=== PATIENT | female | born 1985 | race American Indian/Alaskan Native ===

== ENCOUNTER 2018-08-16 14:38 | Emergency (ER) | payer MEDICAID, OTHER ==
[2018-08-16 15:40] VITALS: BP 120/71
--- NOTE | 2018-08-16 15:40 | Emergency Department Report ---
Chief Complaint: Nausea/Vomiting/Diarrhea Stated Complaint: BODY ACHE/N/V/VOMITING Time Seen by Provider: 08/16/18 15:37 - HPI History of Present Illness: ATE OUT YESTERDAY LMP 2-26 RX NONE PMH ASTHMA PSH CSEC [id number] CO LLQ, NAUSEA AND VOMITING AMBULATORY NAD MSE COMPLETED MSE screening note: Focused history and physical exam performed. Due to findings the following was ordered: ED Disposition for MSE Condition: Stable
[2018-08-16 16:36] LABS: Basophils # (Auto) 0.1 K/mm3 (0.0-0.1); Basophils % (Auto) 0.9 % (0.0-1.8); Eosinophils # (Auto) 0.3 K/mm3 (0.0-0.4); Eosinophils % (Auto) 3.1 % (0.0-4.3); Hematocrit 37.1 % (30.3-42.9); Hemoglobin 12.1 gm/dl (10.1-14.3); Lymphocytes # (Auto) 3.1 K/mm3 (1.2-5.4); Lymphocytes % (Auto) 31.4 % (13.4-35.0); Mean Corpuscular HGB Conc 33 % (30-34); Mean Corpuscular Volume 81 fl (79-97); Monocytes # (Auto) 0.9 K/mm3 (0.0-0.8); Monocytes % (Auto) 8.9 % (0.0-7.3); Platelet Count 433 K/mm3 (140-440); Red Blood Count 4.59 M/mm3 (3.65-5.03); Red Cell Distribution Width 16.6 % (13.2-15.2)
[2018-08-16 16:50] LABS: Alanine Aminotransferase 6 units/L (7-56); Albumin 4.2 g/dL (3.9-5); BUN/Creatinine Ratio 30; Blood Urea Nitrogen 15 mg/dL (7-17); Calcium 9.1 mg/dL (8.4-10.2); Hemolysis Index 48
[2018-08-16 17:22] LABS: Bilirubin,Urine NEG (Negative); Blood,Urine NEG (Negative); Color,Urine Yellow (Yellow); Mucus,Urine FEW /HPF; Protein,Urine <15 mg/dL mg/dL (Negative); WBC,Urine < 1.0 /HPF (0.0-6.0)
[2018-08-16 17:34] LABS: HCG Qualitative,Urine Negative (Negative)
--- NOTE | 2018-08-16 17:35 | Emergency Department Report ---
HPI - General Chief Complaint: Nausea/Vomiting/Diarrhea Time Seen by Provider: 08/16/18 15:37 - HPI HPI: 32-year-old -[place] male presents to ED with abdominal discomfort, cramping, nausea, vomiting, diarrhea, since yesterday. Symptoms started after patient ate out. Symptoms have been improving, LMP about 6 weeks ago, wondering about a test. Fever, chills or night sweats. No bloody diarrhea, hematochezia, or melena. No hematemesis. Has not taking any medications for symptoms. ED Past Medical Hx - Past Medical History Hx Asthma: Yes Additional medical history: anxiety - Surgical History Past Surgical History?: Yes Additional Surgical History: C section - Social History Smoking Status: Never Smoker Substance Use Type: None - Medications Home Medications: Home Medications Medication Instructions Recorded Confirmed Last Taken Type Amoxicillin/Potassium Clav 1 each PO BID #20 tablet 05/22/18 Unknown Rx [Augmentin 875-125 Tablet] Ondansetron [Zofran Odt] 4 mg PO Q8HR #7 tab.rapdis 08/16/18 Unknown Rx ED Review of Systems ROS: Stated complaint: BODY ACHE/N/V/VOMITING Other details as noted in HPI Constitutional: denies: chills, fever Eyes: denies: eye pain, eye discharge, vision change ENT: denies: ear pain, throat pain Respiratory: denies: cough, shortness of breath, wheezing Cardiovascular: denies: chest pain, palpitations Endocrine: no symptoms reported Gastrointestinal: abdominal pain, nausea, vomiting, diarrhea Genitourinary: denies: urgency, dysuria, discharge Musculoskeletal: denies: back pain, joint swelling, arthralgia Skin: denies: rash, lesions Neurological: denies: headache, weakness, paresthesias Psychiatric: denies: anxiety, depression Hematological/Lymphatic: denies: easy bleeding, easy bruising Physical Exam - Physical Exam Vital Signs: Vital Signs 08/16/18 15:37 Temperature 98.6 F Pulse Rate 78 Respiratory 16 Rate Blood Pressure 120/71 O2 Sat by Pulse 100 Oximetry Physical Exam: - General Limitations: No Limitations General appearance: alert, in no apparent distress - Head Head exam: Present: atraumatic, normocephalic - Eye Eye exam: Present: normal appearance - ENT ENT exam: Present: mucous membranes moist - Neck Neck exam: Present: normal inspection - Respiratory Respiratory exam: Present: normal lung sounds bilaterally. Absent: respiratory distress - Cardiovascular Cardiovascular Exam: Present: regular rate, normal rhythm. Absent: systolic murmur, diastolic murmur, rubs, gallop - GI/Abdominal GI/Abdominal exam: Present: soft, normal bowel sounds - Extremities Exam Extremities exam: Present: normal inspection - Back Exam Back exam: Present: normal inspection - Neurological Exam Neurological exam: Present: alert, oriented X3 - Psychiatric Psychiatric exam: Present: normal affect, normal mood - Skin Skin exam: Present: warm, dry, intact, normal color. Absent: rash ED Course Vital Signs 08/16/18 15:37 Temperature 98.6 F Pulse Rate 78 Respiratory 16 Rate Blood Pressure 120/71 O2 Sat by Pulse 100 Oximetry - Reevaluation(s) Reevaluation #1: 08/16/18 17:52 Much improved and wants to go home ED Medical Decision Making - Lab Data Result diagrams: 08/16/18 16:17 08/16/18 16:17 - Medical Decision Making 38-year-old with abdominal pain, nausea, diarrhea after eating out Labs and urine were within normal limits in the ED, feeling much better and will be discharged return to ED if symptoms return or worsen. - Differential Diagnosis gastroenteritis, food poisoning, colitis, Critical care attestation.: If time is entered above; I have spent that time in minutes in the direct care of this critically ill patient, excluding procedure time. ED Disposition Clinical Impression: Gastroenteritis Food poisoning Qualifiers: Encounter type: initial encounter Injury intent: undetermined intent Qualified Code(s): T62.94XA - Toxic effect of unspecified noxious substance eaten as food, undetermined, initial encounter Disposition: DC-01 TO HOME OR SELFCARE Is pt being admited?: No Does the pt Need Aspirin: No Condition: Stable Instructions: Food Poisoning (ED), Gastroenteritis (ED) Prescriptions: Ondansetron [Zofran Odt] 4 mg PO Q8HR #7 tab.rapdis Referrals: ROSEMARIE HAWKINS MD [Primary Care Provider] - 3-5 Days
== END 2018-08-16 18:07 | disposition home or self-care (01) ==
LOC: ED 14:38
DX: T62.94XA Toxic effect of unspecified noxious substance eaten as food, undetermined, initial encounter (principal); K52.9 Noninfective gastroenteritis and colitis, unspecified; J45.909 Unspecified asthma, uncomplicated; X58.XXXA Exposure to other specified factors, initial encounter
CPT/HCPCS: 36415; 80053; 81001; 81025; 83690; 85025; 99283

== ENCOUNTER 2018-08-27 15:43 | Emergency (ER) | payer MEDICAID, OTHER ==
[2018-08-27 15:52] VITALS: BP 114/77
--- NOTE | 2018-08-27 15:52 | Emergency Department Report ---
Blank Doc - Documentation Documentation: This is a 32-year-old female that presents with acute on chronic intermittent headaches and diarrhea. Denies any abdominal pain. Denies any n/v. This initial assessment/diagnostic orders/clinical plan/treatment(s) is/are subject to change based on patient's health status, clinical progression and re- assessment by fellow clinical providers in the ED. Further treatment and workup at subsequent clinical providers discretion. Patient/guardians urged not to elope from the ED as their condition may be serious if not clinically assessed and managed. Initial orders include: 1- Patient sent to [facility] for further evaluation and treatment 2- labs
[2018-08-27 16:30] LABS: Basophils # (Auto) 0.2 K/mm3 (0.0-0.1); Basophils % (Auto) 1.5 % (0.0-1.8); Eosinophils # (Auto) 0.4 K/mm3 (0.0-0.4); Eosinophils % (Auto) 3.6 % (0.0-4.3); Hematocrit 35.1 % (30.3-42.9); Hemoglobin 11.4 gm/dl (10.1-14.3); Lymphocytes # (Auto) 2.9 K/mm3 (1.2-5.4); Lymphocytes % (Auto) 28.2 % (13.4-35.0); Mean Corpuscular HGB Conc 32 % (30-34); Mean Corpuscular Volume 81 fl (79-97); Monocytes # (Auto) 1.1 K/mm3 (0.0-0.8); Monocytes % (Auto) 10.1 % (0.0-7.3); Platelet Count 387 K/mm3 (140-440); Red Blood Count 4.35 M/mm3 (3.65-5.03); Red Cell Distribution Width 15.9 % (13.2-15.2)
[2018-08-27] MEDS ORDERED: TYLENOL PO ONE (16:35)
[2018-08-27 16:43] LABS: BUN/Creatinine Ratio 36; Blood Urea Nitrogen 18 mg/dL (7-17); Calcium 8.8 mg/dL (8.4-10.2); Hemolysis Index 30
[2018-08-27] MEDS ORDERED: DELTASONE PO ONE (17:15)
--- NOTE | 2018-08-27 17:19 | Emergency Department Report ---
Minor Respiratory - HPI Chief Complaint: Headache Stated Complaint: MIGRAINE/DIARRHEA Time Seen by Provider: 08/27/18 15:51 Duration: 3 Days Pain Location: Other Minor Respiratory: Yes Able to Tolerate Fluids, No Rhinorrhea, No Sore Throat, No Ear Pain, No Cough, No Sick Contacts, No Hemoptysis, No Chest Pain, No Shortness of Breath, No Fever Other History: Patient is a pleasant 32-year-old that comes in today with a headache. She also has sinus tenderness and postnasal drip. She has some family members that have had recent diarrhea but she also thinks that her p ostnasal drip could be causing her stools to be loose. Past medical history anxiety. Past surgical history none. Home medications none ED Review of Systems ROS: Stated complaint: MIGRAINE/DIARRHEA Other details as noted in HPI Comment: All other systems reviewed and negative Eyes: denies: as per HPI, eye pain ENT: denies: ear pain Respiratory: denies: orthopnea Cardiovascular: denies: palpitations Endocrine: denies: excessive sweating Gastrointestinal: as per HPI, diarrhea. denies: nausea Genitourinary: denies: urgency Musculoskeletal: denies: back pain Skin: denies: lesions Neurological: as per HPI, headache Psychiatric: denies: anxiety Hematological/Lymphatic: denies: easy bleeding ED Past Medical Hx - Past Medical History Previous Medical History?: Yes Hx Asthma: Yes Additional medical history: anxiety - Surgical History Past Surgical History?: Yes Additional Surgical History: C section - Family History Family history: no significant - Social History Smoking Status: Never Smoker Substance Use Type: Marijuana - Medications Home Medications: Home Medications Medication Instructions Recorded Confirmed Last Taken Type Cetirizine HCl [ZyrTEC] 10 mg PO DAILY #30 capsule 08/27/18 Unknown Rx Fluticasone [Flonase] 1 spray NS QDAY #1 bottle 08/27/18 Unknown Rx predniSONE [Deltasone] 20 mg PO DAILY #5 tablet 08/27/18 Unknown Rx Minor Respiratory Exam - Exam General: Vital signs noted. No distress. Alert and acting appropriately. HEENT: Yes Pharyngeal Erythema, Yes Moist Mucous Membranes, Yes Frontal Tenderness, Yes Maxillary Tenderness, No Pharyngeal Exudates, No Rhinorrhea, No Conjuctival Injection Ear: Neither TM Bulge, Neither TM Erythema, Neither EAC Pain, Neither EAC Discharge Neck: Yes Supple, No Adenopathy Lungs: Yes Good Air Exchange, No Wheezes, No Ronchi, No Stridor, No Cough, No Labored Respirations, No Retractions, No Use of Accessory Muscles, No Other Abnormal Lung Sounds Heart: Yes Regular, No Murmur Abdomen: Yes Normal Bowel Sounds, No Tenderness, No Peritoneal Signs Skin: No Rash, No Edema Neurologic: Alert and oriented, no deficits. Musculoskeletal: Unremarkable. ED Course Vital Signs 08/27/18 15:51 Temperature 98.8 F Pulse Rate 74 Respiratory 18 Rate Blood Pressure 114/77 O2 Sat by Pulse 100 Oximetry ED Medical Decision Making - Lab Data Result diagrams: 08/27/18 16:08 08/27/18 16:08 - Medical Decision Making SIMPLE URTI SINUS PAIN AND TENDERNESS DIARRHEA VSS NONTOXIC TAKING PO AMBULATORY Labs 08/27/18 08/27/18 08/27/18 16:08 16:08 16:08 WBC 10.4 RBC 4.35 Hgb 11.4 Hct 35.1 MCV 81 MCH 26 L MCHC 32 RDW 15.9 H Plt Count 387 Lymph % (Auto) 28.2 Catron % (Auto) 10.1 H Eos % (Auto) 3.6 Baso % (Auto) 1.5 Lymph # 2.9 Catron # 1.1 H Eos # 0.4 Baso # 0.2 H Seg Neutrophils % 56.6 Seg Neutrophils # 5.9 Sodium 137 Potassium 4.1 Chloride 105.1 Carbon Dioxide 22 Anion Gap 14 BUN 18 H Creatinine 0.5 L Estimated GFR > 60 BUN/Creatinine Ratio 36 Glucose 87 Calcium 8.8 HCG, Qual Negative Vital Signs 08/27/18 15:51 Temperature 98.8 F Pulse Rate 74 Respiratory 18 Rate Blood Pressure 114/77 O2 Sat by Pulse 100 Oximetry Critical care attestation.: If time is entered above; I have spent that time in minutes in the direct care of this critically ill patient, excluding procedure time. ED Disposition Clinical Impression: Gastroenteritis, Sinusitis, History of asthma Disposition: DC-01 TO HOME OR SELFCARE Is pt being admited?: No Does the pt Need Aspirin: No Condition: Stable Instructions: Sinusitis (ED), Acute Diarrhea (ED) Additional Instructions: motrin or tylenol for fever med as ordered today HYDRATE WELL WITH WATER DIET BLAND AND THEN TOLERATED FOLLOW UP PCP IF PERSISTS REFERRAL BELOW Prescriptions: predniSONE [Deltasone] 20 mg PO DAILY #5 tablet Fluticasone [Flonase] 1 spray NS QDAY #1 bottle Cetirizine HCl [ZyrTEC] 10 mg PO DAILY #30 capsule Referrals: FÁTIMA SORENSON MD [Primary Care Provider] - 3-5 Days Forms: Work/School Release Form(ED) Time of Disposition: 17:15
== END 2018-08-27 17:33 | disposition home or self-care (01) ==
LOC: ED 15:43
DX: J32.9 Chronic sinusitis, unspecified (principal); K52.9 Noninfective gastroenteritis and colitis, unspecified; J45.909 Unspecified asthma, uncomplicated; F12.10 Cannabis abuse, uncomplicated; F41.9 Anxiety disorder, unspecified
CPT/HCPCS: 36415; 80048; 84703; 85025; 99283; J7512

== ENCOUNTER 2021-09-19 16:59 | Emergency (ER) | payer SELFPAY ==
[2021-09-19] MEDS ORDERED: ONDANSETRON 4 MG ODT TAB PO ONE (18:05)
[2021-09-19 20:44] LABS: Alanine Aminotransferase 17 units/L (7-56); Albumin 4.3 g/dL (3.9-5); Blood Urea Nitrogen 11 mg/dL (7-17); Calcium 8.7 mg/dL (8.4-10.2); Hemolysis Index 3
[2021-09-19 20:48] LABS: BUN/Creatinine Ratio 16
[2021-09-19 21:05] LABS: Bilirubin,Urine NEG (Negative); Blood,Urine LG (Negative); Color,Urine Red (Yellow); Mucus,Urine 3+ /HPF; Urobilinogen,Urine < 2.0 mg/dL (<2.0)
[2021-09-19 21:06] LABS: HCG Qualitative,Urine Negative (Negative); RBC,Urine > 182.0 /HPF (0.0-6.0)
--- NOTE | 2021-09-19 21:25 | Emergency Department Report ---
ED N/V/D HPI - General Chief complaint: Abdominal Pain Stated complaint: NO APPETITE Time Seen by Provider: 09/19/21 17:48 Source: patient Mode of arrival: Ambulatory Limitations: No Limitations - History of Present Illness Initial comments: 36-year-old black female with a past medical history of asthma presents to the emergency department for evaluation of 2-day history of nausea vomiting and decreased appetite. She denies abdominal pain, fever, cough, congestion, dysuria, and vaginal discharge. She states that she just feels bad overall. She denies any sick contacts. MD complaint: nausea, vomiting -: Gradual, days(s) (2.) Associated Abdominal Pain: No Pain Scale: 0 Associated Symptoms: nausea/vomiting. denies: myalgias, chest pain, cough, diaphoresis, fever/chills, headaches, loss of appetite, malaise, rash, dysuria, shortness of breath, syncope, weakness - Related Data Previous Rx's Medication Instructions Recorded Last Taken Type Cetirizine HCl [ZyrTEC] 10 mg PO DAILY #30 capsule 08/27/18 Unknown Rx Fluticasone [Flonase] 1 spray NS QDAY #1 bottle 08/27/18 Unknown Rx predniSONE [Deltasone] 20 mg PO DAILY #5 tablet 08/27/18 Unknown Rx Ondansetron [Zofran Odt] 4 mg PO Q8HR PRN #12 tab.rapdis 09/19/21 Unknown Rx cephALEXin [Keflex] 500 mg PO Q12HR #14 cap 09/19/21 Unknown Rx Allergies Allergy/AdvReac Type Severity Reaction Status Date / Time albuterol Allergy Hives Verified 09/19/21 17:10 ED Review of Systems ROS: Stated complaint: NO APPETITE Other details as noted in HPI Comment: All other systems reviewed and negative Constitutional: denies: chills, fever Respiratory: denies: cough, shortness of breath Cardiovascular: denies: chest pain, palpitations Gastrointestinal: nausea, vomiting. denies: abdominal pain, diarrhea, hematemesis, melena, hematochezia Genitourinary: denies: urgency, dysuria, frequency, hematuria, discharge, abnormal menses Musculoskeletal: denies: back pain Skin: denies: rash, lesions Neurological: denies: headache, weakness ED Past Medical Hx - Past Medical History Previous Medical History?: Yes Hx Asthma: Yes Additional medical history: anxiety - Surgical History Additional Surgical History: C section - Social History Smoking Status: Never Smoker Substance Use Type: None - Medications Home Medications: Home Medications Medication Instructions Recorded Confirmed Last Taken Type Cetirizine HCl [ZyrTEC] 10 mg PO DAILY #30 capsule 08/27/18 Unknown Rx Fluticasone [Flonase] 1 spray NS QDAY #1 bottle 08/27/18 Unknown Rx predniSONE [Deltasone] 20 mg PO DAILY #5 tablet 08/27/18 Unknown Rx Ondansetron [Zofran Odt] 4 mg PO Q8HR PRN #12 tab.rapdis 09/19/21 Unknown Rx cephALEXin [Keflex] 500 mg PO Q12HR #14 cap 09/19/21 Unknown Rx ED Physical Exam - General Limitations: No Limitations General appearance: alert, in no apparent distress - Head Head exam: Present: atraumatic, normocephalic - Eye Eye exam: Present: normal appearance. Absent: conjunctival injection - Neck Neck exam: Present: normal inspection. Absent: tenderness, lymphadenopathy - Respiratory Respiratory exam: Present: normal lung sounds bilaterally. Absent: respiratory distress, wheezes, rales, rhonchi, stridor, chest wall tenderness - Cardiovascular Cardiovascular Exam: Present: regular rate - GI/Abdominal GI/Abdominal exam: Present: soft, normal bowel sounds. Absent: distended, tenderness, guarding, rebound, rigid - Extremities Exam Extremities exam: Present: normal inspection, normal capillary refill. Absent: tenderness, pedal edema, joint swelling - Back Exam Back exam: Present: normal inspection. Absent: CVA tenderness (R), CVA tenderness (L) - Neurological Exam Neurological exam: Present: alert, oriented X3, normal gait, reflexes normal. Absent: motor sensory deficit - Psychiatric Psychiatric exam: Present: normal affect, normal mood - Skin Skin exam: Present: warm, dry, intact, normal color ED Course Vital Signs 09/19/21 09/19/21 17:08 20:30 Temperature 98.7 F Pulse Rate 93 H Respiratory 17 Rate Blood Pressure 137/92 [Right] O2 Sat by Pulse 99 99 Oximetry ED Medical Decision Making - Lab Data Result diagrams: 09/19/21 19:28 - Medical Decision Making 36-year-old black female with a past medical history of asthma presents to the emergency department for evaluation of 2-day history of nausea vomiting and decreased appetite. She denies abdominal pain, fever, cough, congestion, dysuria, and vaginal discharge. She states that she just feels bad overall. She denies any sick contacts. No gross abnormalities noted on labs. Urine positive for urinary tract infection. Nausea resolved after Zofran, and patient was able to drink a cup of water and keep it down. She continues to deny abdominal pain. She will be treated for urinary tract infection with 7-day course of Keflex 500 mg twice daily along with Zofran to use as needed for nausea. She is advised to take medication as prescribed, drink plenty of noncaffeinated fluids, and follow-up with primary care provider if no improvement or worsening symptoms. She kennedy balized understanding of and agreement with plan of care. Critical care attestation.: If time is entered above; I have spent that time in minutes in the direct care of this critically ill patient, excluding procedure time. ED Disposition Clinical Impression: UTI (urinary tract infection) Qualifiers: Urinary tract infection type: acute cystitis Hematuria presence: with hematuria Qualified Code(s): N30.01 - Acute cystitis with hematuria Disposition: HOME / SELF CARE / HOMELESS Is pt being admited?: No Does the pt Need Aspirin: No Condition: Stable Instructions: Antibiotic Medicine, Adult, [id number], Urinary Tract Inf ection, Adult, [id number], Abdominal Pain (ED) Additional Instructions: Take medications as prescribed. Follow-up with primary care provider if no improvement or worsening symptoms. Return to the emergency department as needed. Prescriptions: cephALEXin [Keflex] 500 mg PO Q12HR #14 cap Ondansetron [Zofran Odt] 4 mg PO Q8HR PRN #12 tab.rapdis PRN Reason: Nausea And Vomiting Referrals: MAILE GOMEZ MD [Referring] - 3-5 Days Time of Disposition: 21:24
[2021-09-19 22:09] VITALS: BP 132/89
== END 2021-09-19 22:09 | disposition home or self-care (01) ==
LOC: ED 16:59
DX: N39.0 Urinary tract infection, site not specified (principal); J45.909 Unspecified asthma, uncomplicated
CPT/HCPCS: 36415; 80053; 81001; 81025; 83690; 87086; 99283; J3490; Q0162

== ENCOUNTER 2021-10-30 20:10 | Emergency (ER) | payer SELFPAY ==
[2021-10-30 21:03] VITALS: BP 120/79
--- NOTE | 2021-10-30 21:20 | Emergency Department Report ---
ED General Adult HPI - General Chief complaint: Dental/Oral Stated complaint: TOOTHACHE/INFECTION Source: patient Mode of arrival: Ambulatory Limitations: No Limitations - History of Present Illness Initial comments: Patient is a 36-year-old -[place] female with a history of anxiety and asthma who presents to the ED with complaint of acute onset persistent painful swollen left mandibular and maxillary gingiva and premolar and molar tooth aches for the last 4 days. Patient states that the pain has worsened in the last 2 days such that she has not been able to eat anything due to pain. Patient also complains of intermittent chills and fever as well as nausea. Patient denies vomiting, dizziness, syncope, traumatic injury, nasal and sinus congestion, sore throat, headache, chest pain or shortness of breath, diarrhea or abdominal pain and change in vision MD Complaint: dental pain, fever, jaw pain -: Sudden, days(s) (4) Location: mouth Radiation: non-radiation Severity scale (0 -10): 8 Quality: aching, sharp Consistency: constant Improves with: none Worsens with: eating Associated Symptoms: denies other symptoms, fever/chills, loss of appetite, malaise. denies: confusion, chest pain, cough, headaches, nausea/vomiting, rash, seizure, shortness of breath, syncope, weakness Treatments Prior to Arrival: none - Related Data Previous Rx's Medication Instructions Recorded Last Taken Type Cetirizine HCl [ZyrTEC] 10 mg PO DAILY #30 capsule 08/27/18 Unknown Rx Fluticasone [Flonase] 1 spray NS QDAY #1 bottle 08/27/18 Unknown Rx predniSONE [Deltasone] 20 mg PO DAILY #5 tablet 08/27/18 Unknown Rx cephALEXin [Keflex] 500 mg PO Q12HR #14 cap 09/19/21 Unknown Rx Acetaminophen/Codeine [Tylenol 1 tab PO Q6H PRN #12 tab 10/30/21 Unknown Rx /Codeine # 3 tab] Clindamycin [Clindamycin CAP] 300 mg PO Q8H #30 cap 10/30/21 Unknown Rx Ketorolac [Toradol] 10 mg PO Q8H PRN #20 10/30/21 Unknown Rx Ondansetron [Zofran ODT TAB] 4 mg PO Q8HR PRN #12 tab.rapdis 10/30/21 Unknown Rx Allergies Allergy/AdvReac Type Severity Reaction Status Date / Time albuterol Allergy Hives Verified 09/19/21 17:10 ED Review of Systems ROS: Stated complaint: TOOTHACHE/INFECTION Other details as noted in HPI Constitutional: chills, fever, malaise Eyes: denies: eye pain, eye discharge, vision change ENT: dental pain (Left mandibular and maxillary gingival swelling and pain, premolar and molar tooth ache). denies: ear pain, throat pain Respiratory: denies: cough, shortness of breath, wheezing Cardiovascular: denies: chest pain, palpitations Endocrine: no symptoms reported Gastrointestinal: denies: abdominal pain, nausea, diarrhea Genitourinary: denies: urgency, dysuria, discharge Musculoskeletal: denies: back pain, joint swelling, arthralgia Skin: denies: rash, lesions Neurological: denies: headache, weakness, paresthesias Psychiatric: denies: anxiety, depression Hematological/Lymphatic: denies: easy bleeding, easy bruising ED Past Medical Hx - Past Medical History Hx Asthma: Yes Additional medical history: anxiety - Surgical History Additional Surgical History: C section - Social History Smoking Status: Never Smoker Substance Use Type: None - Medications Home Medications: Home Medications Medication Instructions Recorded Confirmed Last Taken Type Cetirizine HCl [ZyrTEC] 10 mg PO DAILY #30 capsule 08/27/18 Unknown Rx Fluticasone [Flonase] 1 spray NS QDAY #1 bottle 08/27/18 Unknown Rx predniSONE [Deltasone] 20 mg PO DAILY #5 tablet 08/27/18 Unknown Rx cephALEXin [Keflex] 500 mg PO Q12HR #14 cap 09/19/21 Unknown Rx Acetaminophen/Codeine [Tylenol 1 tab PO Q6H PRN #12 tab 10/30/21 Unknown Rx /Codeine # 3 tab] Clindamycin [Clindamycin CAP] 300 mg PO Q8H #30 cap 10/30/21 Unknown Rx Ketorolac [Toradol] 10 mg PO Q8H PRN #20 10/30/21 Unknown Rx Ondansetron [Zofran ODT TAB] 4 mg PO Q8HR PRN #12 tab.rapdis 10/30/21 Unknown Rx ED Physical Exam - General Limitations: No Limitations General appearance: alert, in no apparent distress - Head Head exam: Present: atraumatic, normocephalic, normal inspection - Eye Eye exam: Present: normal appearance, PERRL, EOMI Pupils: Present: normal accommodation - ENT ENT exam: Present: mucous membranes moist, TM's normal bilaterally, normal external ear exam, other (Swollen, tender left maxillary and mandibular gingiva; tender premolar and molar teeth tenderness with diffuse dental caries) - Neck Neck exam: Present: normal inspection, full ROM. Absent: tenderness, lymphadenopathy - Respiratory Respiratory exam: Present: normal lung sounds bilaterally. Absent: respiratory distress, wheezes, rales, rhonchi, chest wall tenderness, accessory muscle use, decreased breath sounds, prolonged expiratory - Cardiovascular Cardiovascular Exam: Present: normal rhythm, tachycardia, normal heart sounds. Absent: systolic murmur, diastolic murmur, rubs, gallop - GI/Abdominal GI/Abdominal exam: Present: soft, normal bowel sounds. Absent: tenderness, guarding, rebound, hyperactive bowel sounds, hypoactive bowel sounds, organomegaly - Extremities Exam Extremities exam: Present: normal inspection, full ROM, normal capillary refill. Absent: tenderness - Back Exam Back exam: Present: normal inspection, full ROM. Absent: tenderness, CVA tenderness (R), CVA tenderness (L), muscle spasm, paraspinal tenderness, vertebral tenderness, rash noted - Neurological Exam Neurological exam: Present: alert, oriented X3, CN II-XII intact, normal gait, reflexes normal - Psychiatric Psychiatric exam: Present: normal affect, normal mood - Skin Skin exam: Present: warm, dry, intact, normal color. Absent: rash ED Course Vital Signs 10/30/21 21:02 Temperature 100.2 F H Pulse Rate 126 H Respiratory 21 Rate Blood Pressure 120/79 O2 Sat by Pulse 95 Oximetry ED Medical Decision Making - Medical Decision Making This is a 36-year-old -[place] female with a history of anxiety and asthma who presents to the ED with complaint of acute onset persistent painful swollen left mandibular and maxillary gingiva and premolar and molar tooth aches for the last 4 days. Patient states that the pain has worsened in the last 2 days such that she has not been able to eat anything due to pain. Patient also complains of intermittent chills and fever as well as nausea. In the ED, patient is alert and oriented x3 and is not in any distress. Patient is however tachycardic and febrile in triage. Patient was treated for pain in the ED and observed in the ED. On reevaluation, patient's pain is well controlled m edication. Fever resolved and tachycardia also resolved. Patient will discharge home on pain medications and antibiotics and advised to follow-up with her primary care physician or dentist in 7 to 10 days for reevaluation or return to the ED immediately if symptoms get worse. - Differential Diagnosis Dental abscess; dental caries; acute gingivitis; Critical care attestation.: If time is entered above; I have spent that time in minutes in the direct care of this critically ill patient, excluding procedure time. ED Disposition Clinical Impression: Dental abscess, Acute gingivitis, Dental caries, Fever and chills Disposition: 01 HOME / SELF CARE / HOMELESS Is pt being admited?: No Does the pt Need Aspirin: No Condition: Stable Instructions: Dental Abscess, [id number], Trench Mouth, Dental Extraction, Care After, [id number], Fever, Adult, [id number] Additional Instructions: Take medication with food, drink plenty of fluids and follow-up with your primary care physician in 7 to 10 days for reevaluation. Return to the ED immediately if symptoms get worse. Prescriptions: Clindamycin [Clindamycin CAP] 300 mg PO Q8H #30 cap Ketorolac [Toradol] 10 mg PO Q8H PRN #20 PRN Reason: Pain Acetaminophen/Codeine [Tylenol /Codeine # 3 tab] 1 tab PO Q6H PRN #12 tab PRN Reason: Pain , Severe (7-10) Ondansetron [Zofran ODT TAB] 4 mg PO Q8HR PRN #12 tab.rapdis PRN Reason: Nausea And Vomiting Referrals: [facility] [Outside] - 7-10 days Time of Disposition: 21:31 Print Language: NEPALI
[2021-10-30] MEDS: IBUPROFEN 600 MG TAB PO ONE (21:28)
[2021-10-30] MEDS: AMOXICILLIN/K CLAV 875/125MG TAB PO ONE (21:28)
[2021-10-30] MEDS: HYDROcodone/ACETAMINOPHEN 7.5-325MG TAB PO ONE (21:28)
[2021-10-30] MEDS: ONDANSETRON 4 MG ODT TAB PO ONE (21:28)
== END 2021-10-30 23:20 | disposition home or self-care (01) ==
LOC: ED 20:10
DX: K04.7 Periapical abscess without sinus (principal); K05.00 Acute gingivitis, plaque induced; K02.9 Dental caries, unspecified; R50.9 Fever, unspecified; J45.909 Unspecified asthma, uncomplicated; Z91.09 Other allergy status, other than to drugs and biological substances; Z79.899 Other long term (current) drug therapy
CPT/HCPCS: 99282; J3490; Q0162